=== PATIENT | female | born 1980 | race Caucasian/White ===

== ENCOUNTER 2017-03-05 20:30 | Emergency (ER) | payer OTHER ==
[2017-03-05 20:36] VITALS: TEMP 98.3
--- NOTE | 2017-03-05 20:54 | C.PDOC ---
History Of Present Illness 36 year old female presents to the ED c/o of lower abdominal pain for the past 3 days. Patient reports her pain is intermittent. She states that nothing causes or exacerbates the pain. Patient is took Advil for pain today with relief to symptoms. She reports having a Hx of fibroids and ovarian cysts that concern her. Patient denies nausea, vomit, diarrhea, fever, chills, vaginal bleeding, vaginal discharge. She has not had a menstrual cycle yet this month. LMP 01/26/17 Time Seen by Provider: 03/05/17 20:46 Chief Complaint (Nursing): Abdominal Pain History Per: Patient History/Exam Limitations: no limitations Onset/Duration Of Symptoms: Days Current Symptoms Are (Timing): Still Present Location Of Pain/Discomfort: Diffuse Radiation Of Pain To:: None Quality Of Discomfort: "Pain" Associated Symptoms: denies: Fever, Chills, Nausea, Vomiting, Diarrhea, Urinary Symptoms Exacerbating Factors: None Alleviating Factors: None Recent travel outside of the [place]: No Additional History Per: Patient Abnormal Vaginal Bleeding: No Past Medical History Reviewed: Historical Data, Nursing Documentation, Vital Signs Vital Signs: Last Vital Signs Temp 98.3 F 03/05/17 20:32 Pulse 81 03/05/17 20:32 Resp 16 03/05/17 20:32 BP 123/74 03/05/17 20:32 Pulse Ox 100 03/05/17 23:59 - Medical History PMH: No Chronic Diseases Surgical History: No Surg Hx Family History: States: Unknown Family Hx - Social History Hx Tobacco Use: No Hx Alcohol Use: No Hx Substance Use: No - Immunization History Hx Tetanus Toxoid Vaccination: No Hx Influenza Vaccination: No Hx Pneumococcal Vaccination: No Review Of Systems Constitutional: Negative for: Fever, Chills Cardiovascular: Negative for: Chest Pain, Palpitations Respiratory: Negative for: Cough, Shortness of Breath Gastrointestinal: Positive for: Abdominal Pain. Negative for: Nausea, Vomiting , Diarrhea Genitourinary: Negative for: Dysuria, Hematuria, Vaginal Discharge, Vaginal Bleeding Skin: Negative for: Rash Neurological: Negative for: Weakness, Numbness Physical Exam - Physical Exam Appears: Non-toxic, No Acute Distress Skin: Normal Color, Warm, Dry Head: Atraumatic, Normacephalic Eye(s): bilateral: Normal Inspection Nose: No Discharge, No Deformity Oral Mucosa: Moist Neck: Normal ROM, Supple Chest: Symmetrical Cardiovascular: Rhythm Regular, No Murmur Respiratory: Normal Breath Sounds, No Rales, No Rhonchi, No Wheezing Gastrointestinal/Abdominal: Soft, No Tenderness, No Guarding, No Rebound Extremity: Normal ROM, No Pedal Edema, No Calf Tenderness, No Deformity, No Swelling Neurological/Psych: Oriented x3, Normal Speech, Normal Cognition Gait: Steady ED Course And Treatment - Laboratory Results Result Diagrams: 03/05/17 21:07 03/05/17 21:07 Lab Interpretation: No Acute Changes O2 Sat by Pulse Oximetry: 100 (On RA) Pulse Ox Interpretation: Normal - CT Scan/US US pelvis Other Rad Studies (CT/US): Read By Radiologist, Radiology Report Reviewed CT/US Interpretation: EXAM: US Pelvis Complete, Transabdominal. CLINICAL HISTORY: 36 years old, female; Pain; Pelvic pain; Patient HX: Urine hcg negative; Additional info: Abd pain. TECHNIQUE: Real-time transabdominal pelvic ultrasound (complete) with image documentation. COMPARISON: No relevant prior studies available. FINDINGS: Uterus/cervix: Uterus measures 11.9 x 5.7 x 7.5 cm in size. 3.5 x 3.2 x 4.2 cm uterine mass. Endometrium: 1.0 cm in thickness. Nabothian cysts. Right ovary: 3.1 x 2.4 x 3.1 cm in size. 2.3 x 1.9 x 2.5 cm anechoic lesion. Normal flow. Left ovary: 3.7 x 2.8 x 3.3 cm in size. 2.7 x 2.1 x 2.9 cm anechoic lesion. Normal flow. Free fluid: Small free fluid within pelvis. Bladder: Unremarkable as visualized. IMPRESSION: 1. Probable fibroid. 2. RIGHT ovarian cyst. 3. LEFT ovarian cyst. CLINICAL HISTORY: 36 years old, female; Pain; Pelvic pain; Patient HX: Urine hcg negative; Additional info: Abd pain. TECHNIQUE: Real-time transvaginal pelvic ultrasound (complete) with image documentation. Transvaginal. imaging was used for better evaluation of the endometrium and adnexa. COMPARISON: No relevant prior studies available. FINDINGS: Uterus/cervix: Uterus measures 11.9 x 5.7 x 7.5 cm in size. 3.5 x 3.2 x 4.2 cm uterine mass. Endometrium: 1.0 cm in thickness. Nabothian cysts. Right ovary: 3.1 x 2.4 x 3.1 cm in size. 2.3 x 1.9 x 2.5 cm anechoic lesion. Normal flow. Left ovary: 3.7 x 2.8 x 3.3 cm in size. 2.7 x 2.1 x 2.9 cm anechoic lesion. Normal flow. Free fluid: Small free fluid within pelvis. Bladder: Empty bladder which cannot be evaluated with this probe. IMPRESSION: 1. Probable fibroid. 2. RIGHT ovarian cyst. 3. LEFT ovarian cyst. Reevaluation Time: 00:03 Reassessment Condition: Unchanged (Patient remains comfortable and in no distress.) Medical Decision Making Medical Decision Making: Impression : abdominal pain Plan: * Labs * UA * Pelvis US Disposition Counseled Patient/Family Regarding: Studies Performed, Diagnosis, Need For Followup - Disposition [facility] Disposition: HOME/ ROUTINE Disposition Time: 00:03 Condition: STABLE Additional Instructions: Take Aleve 2 tablets every 12 hours for pain if needed. Instructions: Uterine Fibroids (ED), Ovarian Cyst (ED) Forms: [employer] (Polish) - Clinical Impression Clinical Impression: Fibroid, uterine, Ovarian cyst - Scribe Statement The provider has reviewed the documentation as recorded by the Scribe Edgar Carroll All medical record entries made by the Scribe were at my direction and personally dictated by me. I have reviewed the chart and agree that the record accurately reflects my personal performance of the history, physical exam, medical decision making, and the department course for this patient. I have also personally directed, reviewed, and agree with the discharge instructions and disposition.
[2017-03-05 21:07] LABS: SQUAMOUS EPITHIAL < 1 /hpf (0-5); URINE BILIRUBIN NEGATIVE (NEGATIVE); URINE CLARITY Clear (Clear); URINE COLOR Straw (YELLOW); URINE GLUCOSE (UA) NORMAL (Normal); URINE LEUKOCYTE ESTERASE NEG Leu/uL (Negative); URINE NITRATE NEGATIVE (NEGATIVE); URINE PROTEIN NEGATIVE (NEGATIVE); URINE UROBILINOGEN NORMAL mg/dL (0.2-1.0)
[2017-03-05 21:09] LABS: URINE BLOOD NEGATIVE (NEGATIVE)
[2017-03-05 21:11] LABS: HCG,QUALITATIVE URINE NEGATIVE (NEGATIVE)
[2017-03-05 21:14] LABS: BASO # 0.1 K/uL (0.0-0.2); EOS # 0.2 K/uL (0.0-0.7); EOS % 1.8 % (0.0-4.0); HEMOGLOBIN 11.6 g/dL (11.0-16.0); LYMPH # 2.6 K/uL (1.0-4.3); LYMPH % 27.2 % (20.0-40.0); MEAN CELL VOLUME 77.1 fL (81.0-99.0); MEAN CORPUSCULAR HEMOGLOBIN 25.6 pg (27.0-31.0); MEAN CORPUSCULAR HGB CONC 33.2 g/dL (33.0-37.0); MEAN PLATELET VOLUME 9.5 fL (7.2-11.7); MONO # 0.5 K/uL (0.0-0.8); MONO % 5.3 % (0.0-10.0); NEUT # 6.1 K/uL (1.8-7.0); NEUT % 64.7 % (50.0-75.0); RBC 4.52 Mil/uL (3.80-5.20); RED CELL DISTRIBUTION WIDTH 14.4 % (11.5-14.5); WHITE BLOOD COUNT 9.5 K/uL (4.8-10.8)
[2017-03-05 21:22] LABS: ALB/GLOB RATIO 1.2 (1.0-2.1); ALBUMIN 3.9 g/dL (3.5-5.0); ALT/SGPT 17 U/L (9-52); AST/SGOT 11 U/L (14-36); BLOOD UREA NITROGEN 15 mg/dL (7-17); CALCIUM 8.5 mg/dl (8.6-10.4); GFR AFRICAN-AMERICAN > 60; GFR NON-AFRICAN AMERICAN > 60
--- NOTE | 2017-03-05 23:57 | US ---
EXAM: US Pelvis Complete, Transabdominal CLINICAL HISTORY: 36 years old, female; Pain; Pelvic pain; Patient HX: Urine hcg negative; Additional info: Abd pain TECHNIQUE: Real-time transabdominal pelvic ultrasound (complete) with image documentation. COMPARISON: No relevant prior studies available. FINDINGS: Uterus/cervix: Uterus measures 11.9 x 5.7 x 7.5 cm in size. 3.5 x 3.2 x 4.2 cm uterine mass. Endometrium: 1.0 cm in thickness. Nabothian cysts. Right ovary: 3.1 x 2.4 x 3.1 cm in size. 2.3 x 1.9 x 2.5 cm anechoic lesion. Normal flow. Left ovary: 3.7 x 2.8 x 3.3 cm in size. 2.7 x 2.1 x 2.9 cm anechoic lesion. Normal flow. Free fluid: Small free fluid within pelvis. Bladder: Unremarkable as visualized. IMPRESSION: 1. Probable fibroid. 2. RIGHT ovarian cyst. 3. LEFT ovarian cyst. EXAM: US Pelvis, Transvaginal CLINICAL HISTORY: 36 years old, female; Pain; Pelvic pain; Patient HX: Urine hcg negative; Additional info: Abd pain TECHNIQUE: Real-time transvaginal pelvic ultrasound (complete) with image documentation. Transvaginal imaging was used for better evaluation of the endometrium and adnexa. COMPARISON: No relevant prior studies available. FINDINGS: Uterus/cervix: Uterus measures 11.9 x 5.7 x 7.5 cm in size. 3.5 x 3.2 x 4.2 cm uterine mass. Endometrium: 1.0 cm in thickness. Nabothian cysts. Right ovary: 3.1 x 2.4 x 3.1 cm in size. 2.3 x 1.9 x 2.5 cm anechoic lesion. Normal flow. Left ovary: 3.7 x 2.8 x 3.3 cm in size. 2.7 x 2.1 x 2.9 cm anechoic lesion. Normal flow. Free fluid: Small free fluid within pelvis. Bladder: Empty bladder which cannot be evaluated with this probe.
[2017-03-06 00:16] VITALS: BP 104/68; PULSE 70; RESP 18; O2SAT 98
== END 2017-03-06 00:16 | disposition home or self-care (01) ==
LOC: C.ER 20:30
DX: D25.9 Leiomyoma of uterus, unspecified (principal); N83.209 Unspecified ovarian cyst, unspecified side